=== PATIENT | male | born 1940 | race Caucasian/White ===

== ENCOUNTER 2018-05-24 00:35 | Inpatient (IN) ==
[2018-05-24] MEDS ORDERED: Gentamicin/NS 80 mg Premix 100 ML IV.SIG ONE (00:47)
[2018-05-24] MEDS ORDERED: fentaNYL Citrate Inj 100 MCG/2 ML Ampul IV.PUSH ONE (00:48)
--- NOTE | 2018-05-24 00:56 | ED ---
HPI General Chief Complaint: Trauma Stated Complaint: TA transfer Time Seen by Provider: 05/24/18 00:46 Source: patient Mode of arrival: EMS Limitations: no limitations History of Present Illness HPI narrative: The patient is a 78 year old male who presents to the [facility] emergency department with a history of acquiring a right knee open fracture, initially evaluated at [facility] and accepted in transfer by the trauma surgeon, Dr. Kidd to this hospital. The patient reports that prior to being evaluated at [facility] he was working in his shop with a saw. He reports that he had a piece of plywood on the sawhorse and the wood became dislodged and the soft fell to the ground. He then lost his balance and also fell possibly on the soft. The patient reports that he has right knee pain. He reports that he did hit his head, however he did not lose consciousness. He denies being on any blood thinners. He denies having any headache currently. He denies having any neck pain, numbness or tingling to his extremities, or weakness of his extremities. On review of systems otherwise , patient denies having any chest pain, new or worsening shortness of breath, abdominal pain, or other neurologic symptoms. Related Data Home Medications Medication Instructions Recorded Confirmed Unable to Obtain Home Meds 05/24/18 05/24/18 Allergies Allergy/AdvReac Type Severity Reaction Status Date / Time Sulfa (Sulfonamide Allergy Severe Hives Verified 05/24/18 00:46 Antibiotics) Review of Systems ROS: all other systems reviewed are negative PMFSH Medical History Medical History Hernia (Acute) Hypertension (Acute) Hypothyroidism (Acute) Throat cancer (Acute) Surgical History Surgical History H/O left knee surgery (Acute) Social History Social History Substance History: No History of Abuse Second Hand Smoke Exposure: No Smoking Status: Former smoker How Often Do You Have a Drink Containing Alcohol: Monthly or less Recent Travel in [facility] within the Last 8 Weeks: No Recent Out of Country Travel within the Last 8 Weeks: No Immunization History Tetanus Immunization: <5 Years Tetanus Immunization Year if Known: 2018 Exam Const General: cooperative, no acute distress and well developed Nutritional Appearance: well nourished Orientation: alert, awake and oriented x3 HENMT Head: normocephalic and other (The patient has an abrasion/superficial laceration noted to the left lateral eyebrow area. Bleeding is controlled. The patient has no increased facial bone motility on palpation. No other facial bone tenderness on palpation.) Nose: no nasal discharge and no epistaxis Mouth: moist mucous membranes Eyes Sclera: normal sclerae Pupils: PERRL Neck Neck: trachea midline and no JVD Resp Effort & Inspection: no use of accessory muscles Auscultation: clear to auscultation bilaterally Cardio Rate: regular rate Rhythm: regular rhythm Heart Sounds: no murmurs GI Inspection: non-distended Palpation: soft, no hepatosplenomegaly and nontender Back/Spine/Pelvis Back: no CVA tenderness Skin General: dry skin (warm) Neuro General: alert, awake, oriented x3 and other (Grossly non-focal.) Speech: other (The patient has a hoarse quality to his voice with a prior history of throat cancer status post radiation therapy.) Motor: no movement abnormalities noted Extrem General: no clubbing, no cyanosis, no edema and other (2+ pulses in all 4 extremities.) Right upper extremity: normal to inspection and full ROM Left upper extremity: normal to inspection and full ROM Right lower extremity: knee (The patient has a bandage in place that was gently removed. The patient is noted to have an anterior curvilinear laceration that is 15 cm in width, 3 cm gaping laceration along the anterior aspect of the right knee. Distal to that, the patient is also noted to have a 5 cm laceration. The bandage will be reapplied. The patient has decreased range of motion, significant pain with any attempts at flexion or extension. The patient has soft compartments noted on examination of the right leg. The patient has intact sensation over all digits. The patient has less than 3- second capillary refill.) Left lower extremity: normal to inspection and full ROM Psych Mood: congruent mood Affect: normal affect Judgment: judgment good Course Consultations Consultation #1: The patient's case including history, pertinent physical examination findings, and laboratory studies were discussed with Dr. Hoyt, the trauma surgeon. It was agreed that the patient would be admitted to the trauma service. Time: 00:47 Initial Documented Vital Signs Temperature 97.8 F 05/24/18 00:38 Pulse Rate 104 H 05/24/18 00:38 Respiratory Rate 20 05/24/18 00:38 Blood Pressure 137/76 05/24/18 00:38 Pulse Oximetry 92 L 05/24/18 00:38 Last Documented Vital Signs Temperature 97.8 F 05/24/18 00:38 Pulse Rate 104 H 05/24/18 00:38 Respiratory Rate 20 05/24/18 00:38 Blood Pressure 137/76 05/24/18 00:38 Pulse Oximetry 92 L 05/24/18 00:38 Medical Decision Making MDM Narrative Medical decision making narrative: During the course of the patient's emergency department visit, the patient's history, examination, and differential diagnosis were reviewed with the patient. The patient was placed on a monitoring coordinator with oximetry and frequent blood pressure monitoring. The patient had IV access obtained prior to arrival of the other facility. The patient was initially provided gentamicin 80 mg IV. The patient will have a bandage reapplied to the right knee, a knee immobilizer will be applied to the right knee. The patient's diagnostic studies from the other facility are reviewed and remarkable for a PT that is 13, INR 1.0, PTT 27, sodium 134, potassium 3.5, chloride 97, CO2 24, glucose 144, BUN 25, creatinine 0.70. The patient's white blood cell count was 9.2, hemoglobin 9.4, platelets 236 with neutrophils 80.3, lymphocytes 13.6. CT scan of the brain showed small focal posttraumatic extraosseous soft tissue swelling but no acute depressed skull fracture or posttraumatic acute intracranial hemorrhage, no focal intra-axial mass or definitive large territorial acute CVA. CT scan of the C-spine shows no gross central canal stenosis or gross acute displaced cervical vertebral body fracture. 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 The patient at that facility did receive morphine for pain control, an update to his tetanus, Ancef for wound prophylaxis, hydralazine for hypertension. A call was placed out to the trauma surgeon who did accept the patient for admission. A call was placed out to the orthopedic surgeon, Dr. Benito. I spoke to Thang, the PA working with Dr. Benito and he recommended that the patient have the bandage reapplied with a Betadine soaked bandage. He recommended that the knee immobilizer be placed. He agreed with the plan for the patient to receive gentamicin IV. He plans to pick the patient to the OR later today at approximately 7 AM. The patient's results were discussed with the patient, including the plan of care. I explained that further testing and/ or monitoring is indicated based on the patient's history, examination, and/ or laboratory findings. Therefore, I recommended admission for additional evaluation. The patient expressed understanding and was agreeable with this plan. The patient was admitted to the hospital in guarded condition and sent to a bed under the care of the trauma service. Medical Screen Exam Complete: Yes Emergency Medical Condition: Yes Discharge Plan Discharge Disposition Patient Disposition: ED Admit(ED Internal Use Only) Discharge Order Discharge Orders: ED Use Only Admit Order (Routine); Ordered 05/24/18 Ordered By: Fina Hernandez Discharge Details Diagnosis: Open fracture of bone of knee joint Physicians Team ED Provider: Fina Hernandez Primary Care Provider: Waqsa Reno Rxs /Orders / Referrals /Forms Prescriptions: No Action Unable to Obtain Home Meds RF: 0 Discharge Interventions Interventions: Vital Signs Last Done: 05/24/18 01:17 Status ED Status: With Doctor
[2018-05-24] MEDS ORDERED: Morphine Sulfate Inj 2 MG/ML Vial IV.PUSH PRN (06:56)
[2018-05-24] MEDS ORDERED: Sod Chloride 0.9% Inj 1,000 ML IV.CONT SCH (07:00)
[2018-05-24] MEDS ORDERED: Metoprolol Tartrate 25 MG Tablet PO SCH (07:52)
[2018-05-24] MEDS ORDERED: Chlorhexidine Gluconate 2% 1 Pack (2 Cloths) TOPICAL SCH (07:52)
[2018-05-24] MEDS ORDERED: Sodium Chlor 0.9% Inj 500 ML IV.SIG SCH (08:00)
[2018-05-24] MEDS ORDERED: ceFAZolin 1 GM Premix Inj 2 GM/100 ML PIGGYBACK IV.SIG ONE (08:29)
[2018-05-24] MEDS ORDERED: Morphine Inj 4 MG/ML Vial IV.PUSH PRN (10:09)
[2018-05-24] MEDS ORDERED: Post-op Orders (for Pharmacy) OTHER STA (10:09)
--- NOTE | 2018-05-24 10:20 | P.CONOP ---
[facility] Orthopedics Consult Note - [facility] Consult date: 05/24/18 Chief complaint: Open fracture right knee Narrative: Navneet is a 78-year-old male. He was at home working in his [employer] last night when he sustained an injury to his right leg. He had a saw on top of a plywood work table. He was moving the table in the plywood fell over. The soft fell and hit the ground causing the safety cover to break. He then fell directly onto the saw. He sustained a large laceration to his right leg. He initially presented to [facility]. X-rays and CT scan revealed a distal femur fracture. He has subsequent transferred to [place] for definitive care. His only complaint is his right leg. He denies dizziness, syncope, or loss of consciousness. Pain is severe with weightbearing. Pain is improved with rest. Review of Systems Patient denies fevers, chills, weight loss, headache, visual changes, hearing loss, chest pain, palpitations, shortness of breath, nausea, vomiting, no urinary changes, diarrhea, bowel changes, neck pain, back pain, skin rashes, weakness of extremities, easy bleeding, enlarged lymph nodes, numbness of extremities, anxiety, or depression. He complains of right leg pain Patient's social history, past medical history, and family history were reviewed on chart and with patient. [facility] - History History Provided By: Patient - Medical History Medical History: Medical History (Last Reviewed 05/24/18 @ 10:18 by Dustin Barajas MD) Hernia Hypertension Hypothyroidism Throat cancer - Surgical History Surgical History: Surgical History (Last Reviewed 05/24/18 @ 10:18 by Dustin Barajas MD) H/O left knee surgery - Family History Family History: Family History (Last Updated 05/24/18 @ 10:18 by Dustin Barajas MD) Other Family history non-contributory - Social History I have reviewed the patient's Social History: Yes - Tobacco History Second Hand Smoke Exposure: No Tobacco Use In Past 30 Days: No Smoking Status: Former smoker - Alcohol History How Often Do You Have a Drink Containing Alcohol: Monthly or less - Substance Use History Substance History: No History of Abuse - Travel History Recent Travel in the [place] Within the Last 8 Weeks: No Recent Travel Out of the Country Within the Last 8 Weeks: No - Immunization History Tetanus Immunization: <5 Years Tetanus Immunization Year if Known: 2018 Medications and Allergies Active Medications: Active Medications Hydrocodone Bitart/Acetaminophen ([place] 5/325) 1 tab PO Q4H PRN PRN Reason: Pain 1-5 Hydrocodone Bitart/Acetaminophen ([place] 7.5/325) 1 tab PO Q4H PRN PRN Reason: Acute Pain Al Hydroxide/Mg Hydroxide (Milk Of Rufino Liq) 30 ml PO BID [facility] Bacitracin (Baciguent Oint) 1 applicatio TOPICAL BID [facility] Calcium/Vitamin D (Oscal With D 250/125 Mg) 1 tab PO TID [facility] Chlorhexidine Gluconate (Chlorhexidine 2% Cloth) 3 pack TOPICAL DAILY@0400 [facility] Stop: 05/30/18 03:59 Last Admin: 05/24/18 08:20 Dose: 3 pack Chlorhexidine Gluconate (Chlorhexidine 2% Cloth) 3 pack TOPICAL DAILY@0400 PRN PRN Reason: Extra cloth needed Stop: 05/30/18 03:59 Chlorhexidine Gluconate (Chlorhexidine 2% Cloth) 3 pack TOPICAL PARCEL POST DELIVERY [facility] Stop: 05/24/18 23:59 Enalaprilat (Vasotec Inj) 1.25 mg IV.PUSH Q8H PRN PRN Reason: Blood pressure 180/95 Enoxaparin Sodium (Lovenox Inj) 30 mg SQ Q24H [facility] Famotidine (Pepcid) 20 mg PO BID [facility] Sodium Chloride (Ns Inj) 1,000 mls @ 100 mls/hr IV.CONT .Q10H [facility] Lactated Ringer's (Lr 1000 Ml Inj) 1,000 mls @ 30 mls/hr IV.SIG .Q24H [facility] Stop: 05/25/18 07:59 Last Admin: 05/24/18 07:45 Dose: 30 mls/hr Sodium Chloride (Ns Inj) 500 mls @ 30 mls/hr IV.SIG .[id number] [facility] Stop: 05/25/18 00:39 Cefazolin Sodium 2,000 mg/ (Sodium Chloride) 100 mls @ 200 mls/hr IV.SIG Q8H [facility] Stop: 05/26/18 03:29 Gentamicin Sulfate/Sodium Chloride (Gentamicin/Ns 80 Mg Premix) 100 mls @ 200 mls/hr IV.SIG Q8H [facility] Stop: 05/26/18 02:44 Lactated Ringer's (Lr 1000 Ml Inj) 1,000 mls @ 80 mls/hr IV.CONT .[id number] [facility] Lactulose (Lactulose Liq) 30 ml PO DAILY PRN PRN Reason: CONSTIPATION Metoprolol Tartrate (Lopressor) 25 mg PO PARCEL POST DELIVERY [facility] Stop: 05/24/18 23:59 Miscellaneous Information (Misc Post-Op Orders (For Pharmacy)) 0 each OTHER STAT STA Stop: 05/24/18 10:10 Morphine Sulfate (Morphine Inj) 3 mg IV.PUSH Q3H PRN PRN Reason: Break through pain Morphine Sulfate (Morphine Inj) 3 mg IV.PUSH Q3H PRN PRN Reason: BREAKTHROUGH PAIN Ondansetron HCl (Zofran Inj) 4 mg IV.PUSH Q6H PRN PRN Reason: NAUSEA OR VOMITING Ondansetron HCl (Zofran Odt) 4 mg PO Q6H PRN PRN Reason: NAUSEA OR VOMITING Povidone Iodine (Betadine 5% Antisepsis Kit) 1 applicatio EACH NARE PARCEL POST DELIVERY [facility] Stop: 05/24/18 23:59 Last Admin: 05/24/18 08:20 Dose: Not Given Senna/Docusate Sodium (Asia-Colace) 1 tab PO BID [facility] Sodium Chloride (Ns Flush) 2 ml IV.FLUSH UNSCH PRN PRN Reason: FLUSH AFTER USING IV ACCESS Sodium Chloride (Ns Flush) 2 ml IV.FLUSH BID [facility] Sodium Chloride (Ns Flush) 2 ml IV.FLUSH PRN PRN PRN Reason: FLUSH AFTER USING IV ACCESS Vitamin D (Vitamin D3) 5,000 unit PO DAILY [facility] Allergies Allergy/AdvReac Type Severity Reaction Status Date / Time Sulfa (Sulfonamide Allergy Severe Hives Verified 05/24/18 00:46 Antibiotics) Home Medications Medication Instructions Recorded Confirmed Type Unable to Obtain Home Meds 05/24/18 05/24/18 History Exam Vital signs: Vital Signs 05/24/18 00:38 05/24/18 01:17 05/24/18 03:28 Temperature 97.8 F Pulse Rate 104 H 97 H 97 H Respiratory Rate 20 20 17 Blood Pressure 137/76 133/75 154/91 H Pulse Oximetry 92 L 98 98 05/24/18 05:04 05/24/18 06:43 Temperature Pulse Rate 95 H 94 H Respiratory Rate 20 17 Blood Pressure 149/83 H 132/80 Pulse Oximetry 98 98 Intake & Output 05/23/18 05/24/18 05/24/18 18:59 06:59 18:59 Intake Total 100 / 100 500 / 500 Output Total 50 / 50 Balance 100 / 100 450 / 450 Weight 79.379 kg Intake: IV 100 / 100 Gentamicin/NS 80 mg Premix 100 100 / 100 ML @ 200 mls/hr IV.SIG ONCE ONE Rx#:[id number] Anesthesia Amount 500 / 500 Output: Estimated Blood Loss 50 / 50 Narrative: Navneet is a pleasant 78-year-old male. General: Awake and alert. No acute distress. Appears well-developed well- nourished Head: Normocephalic, he has a small contusion on his forehead, pupils are equal Neck: Soft, nontender, trachea midline Abdomen: Soft, nondistended Examination of right arm reveals no pain or deformity with shoulder, elbow, or wrist motion. Skin is intact. Radial pulse is palpable. Normal capillary refill in fingers. Sensation is intact in radial, ulnar, and median nerve distributions. Senior Contract Specialist strength is +5. No lymphadenopathy noted. Examination of left arm reveals no pain or deformity with shoulder, elbow, or wrist motion. Skin is intact. Radial pulse is palpable. Normal capillary refill in fingers. Sensation is intact in radial, ulnar, and median nerve distributions. Senior Contract Specialist strength is +5. No lymphadenopathy noted. Examination of left lower extremity reveals no pain or deformity with hip, knee , or ankle motion. Skin is intact. Sensation is intact in left foot. Dorsalis pedis pulse is palpable. Normal capillary refill and feet. Thigh and calf compartments are soft. No lymphadenopathy noted. +5 strength of ankle dorsiflexion and plantarflexion. Examination of right lower extremity reveals no pain or deformity with hip or ankle motion. He has a large open laceration over the medial aspect of his knee. The knee joint and femur are visible. He has severe pain with any knee motion. Sensation is intact in right foot. Dorsalis pedis pulse is palpable. Normal capillary refill and feet. Thigh and calf compartments are soft. No lymphadenopathy noted. +5 strength of ankle dorsiflexion and plantarflexion. Results - Labs Labs: Laboratory Results - last 24 hr 05/24/18 07:40 Blood Type O Positive Antibody Screen Negative - Diagnostic results Knee x-ray: report reviewed, image reviewed Knee CT: report reviewed, image reviewed Assessment and Plan - Assessment and Plan Navneet had a fall at home. He fell onto a saw blade. He had a large laceration to his right knee. X-rays and CT scan were [facility]. He has a fracture through the medial condyle of the right distal femur. Treatment options were discussed with patient. At this point I would recommend irrigation and debridement of right knee and femur with possible open reduction internal fixation. The risk and benefits of surgery were discussed in depth with patient. All questions were answered. The risk and benefits of surgery were discussed in depth with patient. The risk of surgery include bleeding, infection, injuries to arteries, nerves, or blood vessels, infection, wound complications, nonunion, malunion, painful hardware, and need for further surgery. I also discussed medical complications including blood clots, pneumonia, stroke, heart attack, and . Informed consent was obtained and all questions were answered. N.p.o.--plan on surgery this morning Calcium and vitamin D supplementation Physical therapy consult--nonweightbearing right leg Follow-up with Dr. Barajas in 2 weeks SCDs, Mathew Tillman A mid-level provider in my office (nurse practitioner or physician admissions assistant) may see this patient on follow-up visits and continue to implement the objectives of this plan including: Starting or adjusting medications, injections , cast application, orthotics, brace application, physical therapy, radiological studies (including x-ray, MRI, CT, ultrasound, bone scan), vascular studies, neurologic studies, specialist consultation, and proceeding with surgical management, as appropriate.
--- NOTE | 2018-05-24 10:24 | P.OP ---
- Preoperative Diagnosis (1) Fracture of right knee region (2) Open fracture of bone of knee joint Date of procedure: 05/24/18 Procedure: Irrigation and debridement of open right femur fracture, open reduction internal fixation right distal femur medial condyle fracture, primary repair of quadriceps tendon laceration Anesthesia: GETA Surgeon: Dustin Barajas MD Safety Administrator: ANGELIKA Yates PA-C The surgical procedure was assisted by my physician assistant distribution manager. My P.A. presence was necessary throughout this case for the manipulation and positioning of the surgical extremity. My P.A. was assisting me throughout the duration of this procedure. The skill set of a physician assistant distribution manager was medically necessary to complete this procedure. During the surgical case the surgical instrument mechanic was working at the back table and the physician assistant distribution manager was directly assisting me. Operation and Findings: Implants used: Synthes Plan of activity: Nonweightbearing, CKS at all times for 2 weeks then start passive range of motion of knee 0-45 degrees Details of procedure: Informed consent was obtained, operative site was marked. Patient was brought to the OR, placed on OR table, and given IV sedation with GETA. IV antibiotics were administered. The operative leg was prepped with alcohol, followed with Hibiclens, draped in usual sterile fashion. A timeout procedure was performed. Procedure began with irrigation and debridement of wound and fracture. The wound was thoroughly inspected. There was laceration of greater than 50% of the quadriceps tendon. There was a fracture through the medial epicondyle and medial condyle of the distal femur. An excisional debridement was performed. Skin subcutaneous tissue and fascia were sharply debrided with scalpel. Curettes and rongeurs were used to debride bone. After completion of excisional debridement the wound was thoroughly irrigated with pulsatile lavage. Next attention was turned to the medial condyle fracture. A Synthes plate was contoured to fit along the medial condyle of the distal femur. Patient had severe osteoarthritis with large osteophytes. The fracture was held in a reduced position. The plate was positioned along the medial aspect of the distal femur. K wires were used to hold provisional fixation. 3.5 screws were used to compress plate to bone. Multiple 3.5 locking screws were placed distally. All screws were predrilled and premeasured for appropriate length. The wound was now thoroughly irrigated. Next attention was turned to repair of the quadriceps tendon. The quadriceps tendon was reapproximated. Using #1 PDS suture the quadriceps tendon was completely repaired. Multiple sutures were used to repair tendon. The knee was placed to gentle range of motion and repair appeared to be stable. The remainder the wound was now closed with #1 PDS, 3-0 PDS, and 3-0 nylon. Sterile dressings were applied. Patient was placed into a knee immobilizer. Patient was awakened and transferred to recovery room in stable condition.
[2018-05-24] MEDS ORDERED: fentaNYL Citrate Inj 100 MCG/2 ML Ampul ONE ×2 (10:29→10:30)
[2018-05-24] MEDS ORDERED: *morphine SULFATE 4 MG/ML PERIprocedure ONLY ONE (10:33)
[2018-05-24] MEDS ORDERED: HYDROmorphone PF Inj 0.5 MG/0.5 ML Syringe ONE ×2 (10:47→11:13)
--- NOTE | 2018-05-24 10:48 | XR ---
EXAM DATE: 05/24/2018 10:45 AM EST AGE/SEX: 78 years / Male INDICATIONS: ORIF right knee. CLINICAL DATA: This is the patient's initial encounter. Patient reports that signs and symptoms have been present for 1 day and indicates a pain score of Nonresponsive. MEDICAL/SURGICAL HISTORY: None. None. COMPARISON: No prior exams available for comparison. FINDINGS: Hardware is noted within the right distal femur status post ORIF. Moderate to severe arthritic change s are noted involving the medial femoral tibial and patellofemoral joints. CONCLUSION: 1. Status post ORIF of right distal femur. 2. Moderate to severe arthritic changes involving the medial femoral tibial and patellofemoral joint s. Electronically signed by: Ronaldo Martinez MD Board Certified Radiologist 05/24/2018 10:47 AM EST
[2018-05-24] MEDS ORDERED: *Labetalol HCl Inj 100 MG/20 ML Vial PERIprocedural Use ONLY IV.PUSH ONE (10:50)
--- NOTE | 2018-05-24 12:26 | ECG ---
Date Performed: 05/24/2018 Time Performed: 07:48:46 PTAGE: 78 years EKG: Sinus rhythm MINIMAL VOLTAGE CRITERIA FOR LVH, CONSIDER NORMAL VARIANT NONSPECIFIC T-WAVE ABNORMALITY BORDERLINE ECG NO PREVIOUS TRACING DOCTOR: Odin Oates Interpretating Date/Time 05/24/2018 12:24:20
[2018-05-24] MEDS: Famotidine 20 MG Tablet PO SCH ×2 (12:34→20:03)
[2018-05-24] MEDS: Senna/Docusate Sodium 8.6/50 MG Tablet PO SCH ×2 (12:35→20:03)
[2018-05-24] MEDS: ceFAZolin 2 GM Premix Inj 2 GM/50 ML PIGGYBACK IV.SIG SCH (17:00)
[2018-05-24] MEDS: Calcium/Vitamin D 250/125 MG Tablet PO SCH ×2 (17:07→18:18)
[2018-05-24] MEDS: Gentamicin/NS 80 mg Premix 100 ML IV.SIG SCH (18:19)
[2018-05-24] MEDS: Carvedilol 12.5 MG Tablet PO SCH (20:55)
[2018-05-24] MEDS: amLODIPine 10 MG Tablet PO SCH (20:55)
[2018-05-25] MEDS: Gentamicin/NS 80 mg Premix 100 ML IV.SIG SCH ×3 (00:10→17:37)
[2018-05-25] MEDS: ceFAZolin 2 GM Premix Inj 2 GM/50 ML PIGGYBACK IV.SIG SCH ×3 (00:41→17:36)
[2018-05-25] MEDS ORDERED: Chlorhexidine Gluconate 2% 1 Pack (2 Cloths) TOPICAL PRN (04:00)
[2018-05-25] MEDS ORDERED: Chlorhexidine Gluconate 2% 1 Pack (2 Cloths) TOPICAL SCH (04:00)
[2018-05-25 05:42] LABS: Baso % (Auto) 0.3 % (0.0-2.0); Eos % (Auto) 0.1 % (0.0-4.0); Hematocrit 23.7 % (39.0-51.0); Hemoglobin 8.1 gm/dL (13.0-17.0); Lymph # (Auto) 1.1 th/mm3 (1.0-4.8); Lymph % (Auto) 10.8 % (9.0-44.0); Mean Corpuscular HGB Conc 34.3 % (32.0-36.0); Mean Corpuscular Hemoglobin 27.1 pg (27.0-34.0); Mean Corpuscular Volume 79.1 fL (80.0-100.0); Mean Platelet Volume 7.3 fL (7.0-11.0); Mono # (Auto) 1.1 th/mm3 (0.0-0.9); Mono % (Auto) 10.4 % (0.0-8.0); Neut # (Auto) 8.2 th/mm3 (1.8-7.7); Neut % (Auto) 78.4 % (16.0-70.0); Platelet Count 197 th/mm3 (150-450); Red Blood Count 2.99 mil/mm3 (4.50-5.90); Red Cell Distribution Width 18.4 % (11.6-17.2); White Blood Count 10.5 th/mm3 (4.0-11.0)
[2018-05-25 06:11] LABS: Anion Gap 4 meq/L (5-15); Blood Urea Nitrogen 11 mg/dL (7-18); Calcium 7.5 mg/dL (8.5-10.1); Chloride 104 meq/L (98-107); Glomerular Filtration Rate Greater Than 89 mL/min (>89); Glucose,Random 123 mg/dL (74-106); Potassium 3.8 meq/L (3.5-5.1); Sodium 138 meq/L (136-145)
--- NOTE | 2018-05-25 08:03 | P.PN ---
Subjective Interval history: Trauma PTD: 3 HD: 2 Patient sitting up in bed. No distress noted. "I am doing fine." Discussed the importance of a good bowel regimen while taking narcotic pain medications. Patient states he prefers MiraLAX to milk of magnesia. Patient states his pain is controlled on the pain regimen ordered. Physical Exam Vital signs: Vital Signs 05/24/18 10:25 05/24/18 10:30 05/24/18 10:45 Temperature 98.5 F Pulse Rate 80 80 87 Respiratory Rate 12 20 22 Blood Pressure 194/96 H 179/95 H 181/97 H Pulse Oximetry 95 96 95 05/24/18 10:52 05/24/18 11:00 05/24/18 11:15 Temperature Pulse Rate 74 71 72 Respiratory Rate 16 16 16 Blood Pressure 168/84 H 166/80 H 163/86 H Pulse Oximetry 93 L 97 95 05/24/18 11:30 05/24/18 11:45 05/24/18 12:00 Temperature Pulse Rate 77 73 73 Respiratory Rate 20 16 Blood Pressure 175/97 H 136/82 122/71 Pulse Oximetry 93 L 96 97 05/24/18 13:00 05/24/18 14:00 05/24/18 15:00 Temperature Pulse Rate 79 79 98 H Respiratory Rate 20 20 20 Blood Pressure 118/67 144/73 H 169/84 H Pulse Oximetry 98 98 98 05/24/18 16:00 05/24/18 17:00 05/24/18 17:59 Temperature 98.5 F 98.2 F Pulse Rate 94 H 86 98 H Respiratory Rate 18 15 18 Blood Pressure 177/80 H 157/78 H 140/78 Pulse Oximetry 94 L 96 94 L 05/24/18 19:35 05/25/18 00:00 05/25/18 04:15 Temperature 97.8 F 98.6 F 99.1 F Pulse Rate 95 H 93 H 93 H Respiratory Rate 18 18 18 Blood Pressure 165/78 H 156/77 H 162/77 H Pulse Oximetry 94 L 98 95 Intake & Output 05/24/18 05/25/18 05/25/18 18:59 06:59 18:59 Intake Total 2010 1509 / 1509 Output Total 50 / 50 1280 / 1280 Balance 1960 / 1960 229 / 229 Weight 79.4 kg Intake: IV 1511 / 1511 789 / 789 LR 1000 mL Inj 1,000 ML @ 80 461 / 461 539 / 539 mls/hr IV.CONT .[id number] [facility] Rx# :[id number] Gentamicin/NS 80 mg Premix 100 200 / 200 ML @ 200 mls/hr IV.SIG Q8H [facility] Rx#:[id number] LR 1000 mL Inj 1,000 ML @ 30 1000 / 1000 mls/hr IV.SIG .Q24H [facility] Rx#: [id number] Ancef 2 GM Premix Inj 2 gm In 50 / 50 50 / 50 50 ml @ 100 mls/hr IV.SIG Q8H [facility] Rx#:[id number] Oral 720 / 720 Anesthesia Amount 500 / 500 Output: Urine 1280 / 1280 Estimated Blood Loss 50 / 50 Other: Date of Last Bowel Movement 05/23/18 # Bowel Movements 0 Weight On Admission 79.379 kg Narrative: GENERAL: This is a 78-year-old male sitting up in bed. No distress noted. SKIN: Warm and dry. HEAD: Atraumatic. Normocephalic. EYES: PERRLA. Small laceration to left outer eyelid. ENT: No nasal bleeding or discharge. Mucous membranes pink and moist. NECK: Trachea midline. No JVD. CARDIOVASCULAR: Regular rate and rhythm. RESPIRATORY: No accessory muscle use. Lungs are clear to auscultation. Breath sounds equal bilaterally. No distress or dyspnea. GASTROINTESTINAL: BS + x 4 quads. Abdomen soft, non-tender, nondistended. MUSCULOSKELETAL: Extremities without cyanosis, or edema. Right lower extremity wrapped in Lane bandage. CKS in place. + peripheral pulses x 4 extremities. Warm with good capillary refill and sensation. MAEW. NEUROLOGICAL: Awake and alert. Normal speech and pattern. Results - Labs CBC & Chem 7: 05/26/18 03:45 05/26/18 03:45 Laboratory Results - last 24 hr 05/24/18 05/25/18 05/25/18 07:40 04:24 04:24 WBC 10.5 RBC 2.99 L Hgb 8.1 L Hct 23.7 L MCV 79.1 L MCH 27.1 MCHC 34.3 RDW 18.4 H Plt Count 197 MPV 7.3 Neut % (Auto) 78.4 H Lymph % (Auto) 10.8 [place] % (Auto) 10.4 H Eos % (Auto) 0.1 Baso % (Auto) 0.3 Neut # (Auto) 8.2 H Lymph # (Auto) 1.1 [place] # (Auto) 1.1 H Eos # (Auto) 0.0 Baso # (Auto) 0.0 WBC Differential . Differential Comment Auto diff final Sodium 138 Potassium 3.8 Chloride 104 Carbon Dioxide 30.0 Anion Gap 4 L BUN 11 Creatinine 0.63 Estimated GFR Greater than 89 Random Glucose 123 H Calcium 7.5 L Blood Type O Positive Antibody Screen Negative - Imaging Impressions Knee X-Ray 05/24/18 00:00 CONCLUSION: 1. Status post ORIF of right distal femur. 2. 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 Assessment and Plan - Assessment (1) Open fracture of bone of knee joint Status: Acute (2) Fracture of right knee region Status: Acute (3) Open fracture Code(s): T14.8XXA - Other injury of unspecified body region, initial encounter Status: Acute - Plan [place]: This is a 78-year old male who sustained an injury while working in his wood shop. He was working with a saw, and the soft fell to the ground. Then the patient lost his balance and somehow fell on top of the soft injuring his right knee. Additionally, he hit his head but did not lose consciousness. Patient was a trauma transfer from [facility]. INJURIES: RIGHT knee lacerations RIGHT OPEN knee fx (medial femoral epicondyle with nondisplaced intra-articular component extending to the intercondylar notch) PMHx: HTN. Hypothyroidism. Throat cancer. Previous left knee surgery Procedures: 05/24: ORIF and I&D RIGHT distal femur medial condyle fracture. Primary repair of quadriceps tendon laceration Consults: Orthopedics. [facility] nurse liaison. Case management. Diet: Regular diet. Tolerating po diet. Encourage good po intake with each meal. Pulmonary: Encourage good pulmonary toileting. IS at bedside and pt encouraged to use. Rationale for use explained to patient, and verbalized understanding. PAIN Management: [place] 5 - 7.5 mg q4h. Morphine 3 mg q 3h. Activity: OOB. PT and OT ordered. (NWB RLE - CKS) GI prophylaxis: Pepcid 20 mg po BID Bowel regimen: [place]-Colace. Miralax. Lactulose PRN. LBM: 0 DVT prophylaxis: Mechanical VTE with SCDs. Chemical management with Lovenox 30 mg BID SQ. DC Planning: Case management consulted for assistance with final discharge disposition. PT is recommending rehab. Consult placed to [place] nurse liaison to evaluate for admission. Emotional support provided to patient at bedside and plan of care discussed. Discussed with RN at bedside. Discussed pt condition and plan of care with collaborating trauma surgeon. Patient is hemodynamically stable and being managed on the med/surg floor. The trauma team will round each day, and evaluate plan of care on a daily basis. RIGHT knee lacerations RIGHT OPEN knee fx (medial femoral epicondyle with nondisplaced intra-articular component extending to the intercondylar notch) Orthopedics consulted and assisting in management care 05/24: ORIF and I&D RIGHT distal femur medial condyle fracture. Primary repair of quadriceps tendon laceration Supportive care Neuro checks every 4 hours Pain management Antibiotics per orthopedics Encourage out of bed PT and OT ordered NWB RLE -CKS in place Bowel regimen Lovenox for DVT prophylaxis HTN Hypothyroidism History of throat cancer Vital signs every 4 hours and as needed Resume home medications Coreg 12.5 QD. Norvasc 10 mg QD - Attending Attestation The exam, history, and the medical decision-making described in the above note were completed with the assistance of the mid-level provider. I reviewed and agree with the findings presented. I attest that I had a [id number] encounter with the patient on the same day, and personally performed and documented my assessment and findings in the medical record. no acute events overnight vitals stable s/p repair of knee injury continue to work with PT Dc plan to Rehab, d/w patient at bedside
[2018-05-25] MEDS: Senna/Docusate Sodium 8.6/50 MG Tablet PO SCH ×2 (08:36→20:44)
[2018-05-25] MEDS: amLODIPine 10 MG Tablet PO SCH (08:36)
[2018-05-25] MEDS: Carvedilol 12.5 MG Tablet PO SCH (08:36)
[2018-05-25] MEDS: Calcium/Vitamin D 250/125 MG Tablet PO SCH ×3 (08:36→17:37)
[2018-05-25] MEDS: Famotidine 20 MG Tablet PO SCH ×2 (08:36→20:44)
[2018-05-25] MEDS: Enoxaparin Inj 30 MG/0.3 ML Syringe SQ SCH (08:43)
[2018-05-25] MEDS: Polyethylene Glycol 3350 17 GM Packet PO SCH (12:10)
[2018-05-26] MEDS: ceFAZolin 2 GM Premix Inj 2 GM/50 ML PIGGYBACK IV.SIG SCH ×2 (00:19→09:32)
[2018-05-26] MEDS: Gentamicin/NS 80 mg Premix 100 ML IV.SIG SCH ×2 (00:51→11:01)
[2018-05-26 04:43] LABS: Baso # (Auto) 0.1 th/mm3 (0.0-0.2); Baso % (Auto) 0.9 % (0.0-2.0); Eos % (Auto) 0.4 % (0.0-4.0); Hematocrit 21.7 % (39.0-51.0); Hemoglobin 7.4 gm/dL (13.0-17.0); Lymph # (Auto) 1.2 th/mm3 (1.0-4.8); Lymph % (Auto) 14.9 % (9.0-44.0); Mean Corpuscular Hemoglobin 27.3 pg (27.0-34.0); Mean Corpuscular Volume 80.2 fL (80.0-100.0); Mean Platelet Volume 6.9 fL (7.0-11.0); Mono % (Auto) 12.3 % (0.0-8.0); Neut # (Auto) 5.8 th/mm3 (1.8-7.7); Neut % (Auto) 71.5 % (16.0-70.0); Platelet Count 177 th/mm3 (150-450); Red Cell Distribution Width 18.7 % (11.6-17.2); White Blood Count 8.1 th/mm3 (4.0-11.0)
[2018-05-26 05:09] LABS: Anion Gap 4 meq/L (5-15); Blood Urea Nitrogen 8 mg/dL (7-18); Calcium 7.1 mg/dL (8.5-10.1); Carbon Dioxide 30.9 meq/L (21.0-32.0); Chloride 100 meq/L (98-107); Glomerular Filtration Rate Greater Than 89 mL/min (>89); Glucose,Random 113 mg/dL (74-106); Potassium 3.2 meq/L (3.5-5.1); Sodium 135 meq/L (136-145)
[2018-05-26 05:16] LABS: Albumin 2.7 g/dL (3.4-5.0); Calcium-Albumin Corrected 8.1 mg/dL (8.5-10.1)
--- NOTE | 2018-05-26 06:44 | P.PNOP ---
Subjective Interval history: POD 2 s/p ORIF right open medial condyle femur fx doing well. states no pain. controlled. reports sat in chair yesterday Physical Exam Vital signs: Vital Signs 05/25/18 07:58 05/25/18 12:00 05/25/18 16:00 Temperature 98.5 F 98 F 97.4 F L Pulse Rate 92 H 79 Respiratory Rate 18 16 18 Blood Pressure 154/74 H 129/64 151/69 H Pulse Oximetry 96 95 93 L 05/25/18 19:35 05/25/18 23:45 05/26/18 03:50 Temperature 98.1 F 98.9 F 98.5 F Pulse Rate 92 H 97 H 95 H Respiratory Rate 18 18 17 Blood Pressure 146/67 H 160/74 H 147/71 H Pulse Oximetry 95 96 95 Intake & Output 05/25/18 05/25/18 05/26/18 06:59 18:59 06:59 Intake Total 1509 / 1509 1260 / 1260 750 / 750 Output Total 1280 / 1280 1425 / 1425 1500 / 1500 Balance 229 / 229 -165 / -165 -750 / -750 Weight 79.4 kg 79.4 kg Intake: IV 789 / 789 300 / 300 150 / 150 LR 1000 mL Inj 1,000 ML @ 80 539 / 539 mls/hr IV.CONT .[id number] [facility] Rx# :[id number] Gentamicin/NS 80 mg Premix 100 200 / 200 200 / 200 100 / 100 ML @ 200 mls/hr IV.SIG Q8H [facility] Rx#:[id number] Ancef 2 GM Premix Inj 2 gm In 50 / 50 100 / 100 50 / 50 50 ml @ 100 mls/hr IV.SIG Q8H [facility] Rx#:[id number] Oral 720 / 720 960 / 960 600 / 600 Output: Urine 1280 / 1280 1425 / 1425 1500 / 1500 Other: Date of Last Bowel Movement 05/23/18 05/23/18 05/23/18 # Bowel Movements 0 0 Weight On Admission 79.379 kg Narrative: RLE: dressing removed and wounds visualized. clean and dry. healing well. minimal drainage. nvi Results - Labs CBC & Chem 7: 05/26/18 03:45 05/26/18 03:45 Laboratory Results - last 24 hr 05/26/18 05/26/18 03:45 03:45 WBC 8.1 RBC 2.70 L Hgb 7.4 L Hct 21.7 L MCV 80.2 MCH 27.3 MCHC 34.0 RDW 18.7 H Plt Count 177 MPV 6.9 L Neut % (Auto) 71.5 H Lymph % (Auto) 14.9 [place] % (Auto) 12.3 H Eos % (Auto) 0.4 Baso % (Auto) 0.9 Neut # (Auto) 5.8 Lymph # (Auto) 1.2 [place] # (Auto) 1.0 H Eos # (Auto) 0.0 Baso # (Auto) 0.1 WBC Differential . Differential Comment Auto diff final Sodium 135 L Potassium 3.2 L Chloride 100 Carbon Dioxide 30.9 Anion Gap 4 L BUN 8 Creatinine 0.64 Estimated GFR Greater than 89 Random Glucose 113 H Calcium 7.1 L* Calcium Adj for Albumin 8.1 L Albumin 2.7 L Assessment and Plan - Assessment and Plan 1) Right Medial Femoral condyle Fx s/p ORIF and wound closure - POD 2 -NWB -daily dressing changes -knee brace at all times for 2 weeks -begin PROM in 2 weeks 0-45deg -no quad sets or leg lifts -CM for DC planning -DVT prophylaxis -f/uu with Jigna or RUPALI in 2 weeks
[2018-05-26] MEDS ORDERED: Potassium Chloride 25 MEQ Effervescent Tablet PO ONE (07:45)
[2018-05-26] MEDS ORDERED: Sodium Chlor 0.9% Inj 250 ML IV.SIG SCH ×2 (08:00)
--- NOTE | 2018-05-26 08:41 | P.PN ---
Subjective Interval history: Trauma PTD: 4. HD: 3 Patient sitting up in bed. No distress noted. "I have not gotten my blood yet." "I am not having any pain in my leg -I know that." Patient tells us that he had throat cancer in 1990. 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 Physical Exam Vital signs: Vital Signs 05/25/18 12:00 05/25/18 16:00 05/25/18 19:35 Temperature 98 F 97.4 F L 98.1 F Pulse Rate 79 92 H Respiratory Rate 16 18 Blood Pressure 129/64 151/69 H 146/67 H Pulse Oximetry 95 93 L 95 05/25/18 23:45 05/26/18 03:50 Temperature 98.9 F 98.5 F Pulse Rate 97 H 95 H Respiratory Rate 18 17 Blood Pressure 160/74 H 147/71 H Pulse Oximetry 96 95 Intake & Output 05/25/18 05/26/18 05/26/18 18:59 06:59 18:59 Intake Total 1260 / 1260 750 / 750 Output Total 1425 / 1425 1500 / 1500 Balance -165 / -165 -750 / -750 Weight 79.4 kg Intake: IV 300 / 300 150 / 150 Gentamicin/NS 80 mg Premix 100 200 / 200 100 / 100 ML @ 200 mls/hr IV.SIG Q8H [facility] Rx#:[id number] Ancef 2 GM Premix Inj 2 gm In 100 / 100 50 / 50 50 ml @ 100 mls/hr IV.SIG Q8H [facility] Rx#:[id number] Oral 960 / 960 600 / 600 Output: Urine 1425 / 1425 1500 / 1500 Other: Date of Last Bowel Movement 05/23/18 05/23/18 # Bowel Movements 0 Narrative: GENERAL: This is a 78-year-old male sitting up in bed. No distress noted. SKIN: Warm and dry. HEAD: Atraumatic. Normocephalic. EYES: PERRLA. Small laceration to left outer eyelid. ENT: No nasal bleeding or discharge. Mucous membranes pink and moist. NECK: Trachea midline. No JVD. CARDIOVASCULAR: Regular rate and rhythm. RESPIRATORY: No accessory muscle use. Lungs are clear to auscultation. Breath sounds equal bilaterally. No distress or dyspnea. GASTROINTESTINAL: BS + x 4 quads. Abdomen soft, non-tender, nondistended. MUSCULOSKELETAL: Extremities without cyanosis, or edema. Right lower extremity wrapped in Lane bandage. CKS in place. + peripheral pulses x 4 extremities. Warm with good capillary refill and sensation. MAEW. NEUROLOGICAL: Awake and alert. Normal speech and pattern. Results - Labs CBC & Chem 7: 05/26/18 03:45 05/26/18 03:45 Laboratory Results - last 24 hr 05/26/18 05/26/18 05/26/18 03:45 03:45 03:45 WBC 8.1 RBC 2.70 L Hgb 7.4 L Hct 21.7 L MCV 80.2 MCH 27.3 MCHC 34.0 RDW 18.7 H Plt Count 177 MPV 6.9 L Neut % (Auto) 71.5 H Lymph % (Auto) 14.9 [place] % (Auto) 12.3 H Eos % (Auto) 0.4 Baso % (Auto) 0.9 Neut # (Auto) 5.8 Lymph # (Auto) 1.2 [place] # (Auto) 1.0 H Eos # (Auto) 0.0 Baso # (Auto) 0.1 WBC Differential . Differential Comment Auto diff final Sodium 135 L Potassium 3.2 L Chloride 100 Carbon Dioxide 30.9 Anion Gap 4 L BUN 8 Creatinine 0.64 Estimated GFR Greater than 89 Random Glucose 113 H Calcium 7.1 L* Calcium Adj for Albumin 8.1 L Magnesium 2.2 Albumin 2.7 L MTS Gel Crossmatch 05/26/18 07:44 WBC RBC Hgb Hct MCV MCH MCHC RDW Plt Count MPV Neut % (Auto) Lymph % (Auto) [place] % (Auto) Eos % (Auto) Baso % (Auto) Neut # (Auto) Lymph # (Auto) [place] # (Auto) Eos # (Auto) Baso # (Auto) WBC Differential Differential Comment Sodium Potassium Chloride Carbon Dioxide Anion Gap BUN Creatinine Estimated GFR Random Glucose Calcium Calcium Adj for Albumin Magnesium Albumin MTS Gel Crossmatch See Detail Assessment and Plan - Assessment (1) Open fracture of bone of knee joint Status: Acute (2) Fracture of right knee region Status: Acute (3) Open fracture Code(s): T14.8XXA - Other injury of unspecified body region, initial encounter Status: Acute - Plan [place]: This is a 78-year old male who sustained an injury while working in his wood shop. He was working with a saw, and the soft fell to the ground. Then the patient lost his balance and somehow fell on top of the soft injuring his right knee. Additionally, he hit his head but did not lose consciousness. Patient was a trauma transfer from [facility]. INJURIES: RIGHT knee lacerations RIGHT OPEN knee fx (medial femoral epicondyle with nondisplaced intra-articular component extending to the intercondylar notch) PMHx: HTN. Hypothyroidism. Throat cancer. Previous left knee surgery Procedures: 05/24: ORIF and I&D RIGHT distal femur medial condyle fracture. Primary repair of quadriceps tendon laceration Consults: Orthopedics. [facility] nurse liaison. Case management. Diet: Regular diet. Tolerating po diet. Encourage good po intake with each meal. Pulmonary: Encourage good pulmonary toileting. IS at bedside and pt encouraged to use. Rationale for use explained to patient, and verbalized understanding. H&H = 7.4 / . We will transfuse 1 unit PRBC today due to to patient's age and extensive surgery completed. Follow-up labs in the morning K = 3.2. Magnesium level = 2.2. Potassium Eff 50 mEq x 1 dose today. PAIN Management: [place] 5 - 7.5 mg q4h. Morphine 3 mg q 3h for breakthrough pain. Activity: OOB. PT and OT ordered. (NWB RLE - CKS) GI prophylaxis: Pepcid 20 mg po BID Bowel regimen: [place]-Colace. Miralax. Lactulose PRN. LBM: 0. Intensified with bisacodyl p.o./ID x1 dose today. DVT prophylaxis: Mechanical VTE with SCDs. Chemical management with Lovenox 30 mg BID SQ. DC Planning: Case management consulted for assistance with final discharge disposition. PT is recommending rehab. Consult placed to [place] nurse liaison to evaluate for admission. Plan for transition to rehab tomorrow if authorization obtained and bed available. Emotional support provided to patient at bedside and plan of care discussed. Discussed with RN at bedside. Discussed pt condition and plan of care with collaborating trauma surgeon. Patient is hemodynamically stable and being managed on the med/surg floor. The trauma team will round each day, and evaluate plan of care on a daily basis. RIGHT knee lacerations RIGHT OPEN knee fx (medial femoral epicondyle with nondisplaced intra-articular component extending to the intercondylar notch) Orthopedics consulted and assisting in management care 05/24: ORIF and I&D RIGHT distal femur medial condyle fracture. Primary repair of quadriceps tendon laceration Supportive care Neuro checks every 4 hours Pain management Antibiotics per orthopedics -complete today Encourage out of bed PT and OT ordered NWB RLE -CKS in place Bowel regimen Lovenox for DVT prophylaxis Posttraumatic blood loss anemia in trauma H&H = 7.09/26 Will transfuse with 1 unit PRBC today due to patient's age and extensive surgery completed No active signs and symptoms of bleeding Monitor closely Follow-up labs in the a.m. HTN Hypothyroidism History of throat cancer Vital signs every 4 hours and as needed Resume home medications Coreg 12.5 QD. Norvasc 10 mg QD Hypokalemia K = 3.2 Magnesium = 2.2 Potassium Eff 50 MEQ x1 dose today Follow-up labs in the morning
[2018-05-26] MEDS: Polyethylene Glycol 3350 17 GM Packet PO SCH (09:33)
[2018-05-26] MEDS: Enoxaparin Inj 30 MG/0.3 ML Syringe SQ SCH (09:33)
[2018-05-26] MEDS: amLODIPine 10 MG Tablet PO SCH (09:33)
[2018-05-26] MEDS: Senna/Docusate Sodium 8.6/50 MG Tablet PO SCH ×2 (09:33→22:06)
[2018-05-26] MEDS: Calcium/Vitamin D 250/125 MG Tablet PO SCH ×3 (09:34→18:17)
[2018-05-26] MEDS: Carvedilol 12.5 MG Tablet PO SCH (09:34)
[2018-05-26] MEDS: Famotidine 20 MG Tablet PO SCH ×2 (09:34→22:06)
[2018-05-26] MEDS: Bisacodyl 10 MG Supp RECTAL ONE ×2 (09:35→09:55)
[2018-05-27 05:13] LABS: Baso % (Auto) 0.6 % (0.0-2.0); Eos % (Auto) 0.6 % (0.0-4.0); Hematocrit 25.9 % (39.0-51.0); Hemoglobin 8.8 gm/dL (13.0-17.0); Lymph # (Auto) 1.2 th/mm3 (1.0-4.8); Mean Corpuscular Hemoglobin 27.1 pg (27.0-34.0); Mean Corpuscular Volume 79.7 fL (80.0-100.0); Mean Platelet Volume 6.9 fL (7.0-11.0); Mono % (Auto) 12.7 % (0.0-8.0); Neut # (Auto) 5.6 th/mm3 (1.8-7.7); Neut % (Auto) 71.1 % (16.0-70.0); Platelet Count 196 th/mm3 (150-450); Red Blood Count 3.25 mil/mm3 (4.50-5.90); Red Cell Distribution Width 17.4 % (11.6-17.2); White Blood Count 7.8 th/mm3 (4.0-11.0)
[2018-05-27 05:38] LABS: Anion Gap 5 meq/L (5-15); Blood Urea Nitrogen 11 mg/dL (7-18); Calcium 7.7 mg/dL (8.5-10.1); Carbon Dioxide 30.3 meq/L (21.0-32.0); Chloride 101 meq/L (98-107); Glomerular Filtration Rate Greater Than 89 mL/min (>89); Glucose,Random 101 mg/dL (74-106); Potassium 3.5 meq/L (3.5-5.1); Sodium 136 meq/L (136-145)
--- NOTE | 2018-05-27 06:40 | P.PNOP ---
Subjective Interval history: POd 3 s/p ORIF right distal femur doing well. pain controlled with no issues. up with walker but not going very far Physical Exam Vital signs: Vital Signs 05/26/18 08:00 05/26/18 12:00 05/26/18 13:15 Temperature 98.9 F 98.3 F 98.3 F Pulse Rate 89 78 78 Respiratory Rate 24 20 20 Blood Pressure 152/72 H 96/54 L 96/54 L Pulse Oximetry 98 98 98 05/26/18 16:00 05/26/18 19:55 05/27/18 00:00 Temperature 98.5 F 97.9 F 97.6 F Pulse Rate 83 86 89 Respiratory Rate 18 18 18 Blood Pressure 121/59 L 132/63 135/67 Pulse Oximetry 99 93 L 93 L 05/27/18 04:13 Temperature 98.4 F Pulse Rate 80 Respiratory Rate 18 Blood Pressure 147/71 H Pulse Oximetry 93 L Intake & Output 05/26/18 05/26/18 05/27/18 06:59 18:59 06:59 Intake Total 750 / 750 870 / 870 120 / 120 Output Total 1500 / 1500 1050 / 1050 900 / 900 Balance -750 / -750 -180 / -180 -780 / -780 Weight 79.4 kg 78.4 kg Intake: IV 150 / 150 150 / 150 Gentamicin/NS 80 mg Premix 100 100 / 100 100 / 100 ML @ 200 mls/hr IV.SIG Q8H [facility] Rx#:[id number] Ancef 2 GM Premix Inj 2 gm In 50 / 50 50 / 50 50 ml @ 100 mls/hr IV.SIG Q8H [facility] Rx#:[id number] Oral 600 / 600 720 / 720 120 / 120 Intake (Blood Product) Amt 0 / 0 Rbc As-3 Leukoreduced Unit 0 / 0 [id number] Output: Urine 1500 / 1500 1050 / 1050 900 / 900 Other: # Voids 2 Date of Last Bowel Movement 05/23/18 05/26/18 # Bowel Movements 0 0 Narrative: RLE: dressinsg clean and dry. intact. nvi. +CKS Results - Labs CBC & Chem 7: 05/27/18 04:09 05/27/18 04:09 Laboratory Results - last 24 hr 05/26/18 05/26/18 05/27/18 03:45 07:44 04:09 WBC 7.8 RBC 3.25 L Hgb 8.8 L Hct 25.9 L MCV 79.7 L MCH 27.1 MCHC 34.0 RDW 17.4 H Plt Count 196 MPV 6.9 L Neut % (Auto) 71.1 H Lymph % (Auto) 15.0 [place] % (Auto) 12.7 H Eos % (Auto) 0.6 Baso % (Auto) 0.6 Neut # (Auto) 5.6 Lymph # (Auto) 1.2 [place] # (Auto) 1.0 H Eos # (Auto) 0.0 Baso # (Auto) 0.0 WBC Differential . Differential Comment Auto diff final Sodium Potassium Chloride Carbon Dioxide Anion Gap BUN Creatinine Estimated GFR Random Glucose Calcium Magnesium 2.2 MTS Gel Crossmatch See Detail 05/27/18 04:09 WBC RBC Hgb Hct MCV MCH MCHC RDW Plt Count MPV Neut % (Auto) Lymph % (Auto) [place] % (Auto) Eos % (Auto) Baso % (Auto) Neut # (Auto) Lymph # (Auto) [place] # (Auto) Eos # (Auto) Baso # (Auto) WBC Differential Differential Comment Sodium 136 Potassium 3.5 Chloride 101 Carbon Dioxide 30.3 Anion Gap 5 BUN 11 Creatinine 0.68 Estimated GFR Greater than 89 Random Glucose 101 Calcium 7.7 L Magnesium MTS Gel Crossmatch Assessment and Plan - Assessment and Plan 1) Right Medial Femoral condyle Fx s/p ORIF and wound closure - POD 3 -NWB -daily dressing changes -knee brace at all times for 2 weeks -begin PROM in 2 weeks 0-45deg -no quad sets or leg lifts -CM for DC planning -- SNF vs home with [facility]. will likely require SNF -DVT prophylaxis -f/u with Jigna or RUPALI in 2 weeks [facility] Prescription Drug Monitoring Database has been queried and verified prior to prescribing the controlled substance. Acute pain exception. This patient has normal, predicted, physiological, and time limited response to an adverse mechanical stimulus associated with surgery, trauma, or acute illness as described in my notes. There is a lack of alternative treatment options other than to include the prescribed narcotic treatment for this condition.
[2018-05-27] MEDS: Carvedilol 12.5 MG Tablet PO SCH (08:34)
[2018-05-27] MEDS: Famotidine 20 MG Tablet PO SCH ×2 (08:34→20:41)
[2018-05-27] MEDS: Enoxaparin Inj 30 MG/0.3 ML Syringe SQ SCH (08:35)
[2018-05-27] MEDS: Senna/Docusate Sodium 8.6/50 MG Tablet PO SCH ×2 (08:35→20:41)
[2018-05-27] MEDS: amLODIPine 10 MG Tablet PO SCH (08:35)
[2018-05-27] MEDS: Polyethylene Glycol 3350 17 GM Packet PO SCH (08:35)
[2018-05-27] MEDS: Calcium/Vitamin D 250/125 MG Tablet PO SCH ×3 (08:35→18:05)
--- NOTE | 2018-05-27 11:15 | P.DS ---
Date of admission: 05/24/18 01:00 Primary care physician: Waqas Reno Brief History from admission: S/P Fall DS: Diagnosis - Discharge Diagnosis (1) Open fracture of bone of knee joint Status: Acute (2) Fracture of right knee region Status: Acute DS: Medications - Discharge Medications Prescriptions: hydrocodone-acetaminophen [[place]] 1 tab PO Q4H #40 tab rivaroxaban [Xarelto] 10 mg PO DAILY #14 tab DS: Summary Hospital Course: [facility] [place]: Dropped an electric saw and then lost his balance, falling on the blade. No LOC. Trauma transfer. INJURIES: Open RIGHT knee fx PMHx: HTN. Hypothyroidism. Throat cancer. Previous left knee surgery. Open RIGHT knee fx Orthopedics consulted, F/U outpatient 05/24: ORIF and I&D RIGHT distal femur medial condyle fracture. Primary repair of quadriceps tendon laceration Antibiotics complete Hgb stable 8.8 today Pain control Bowel regimen OOB- PT and OT ordered NWB RLE -maintain CKS Lovenox in house, DC on Xarelto per Ortho F/U with PCP in 1 week. Continue home meds Plan of care discussed with patient and RN at bedside. Collaborating Trauma surgeon agrees with plan. Case management consulted to assist with discharge planning. Patient is cleared from trauma surgery standpoint to safely discharge to SNF. - Time Spent with Patient Total time spent providing and/or coordinating discharge services: Greater than 30 minutes - Quality: VTE Deep Vein Thrombosis/Pulmonary Embolism Present on Admission: No Exam Vital signs: Vital Signs 05/26/18 12:00 05/26/18 13:15 05/26/18 16:00 Temperature 98.3 F 98.3 F 98.5 F Pulse Rate 78 78 83 Respiratory Rate 18 Blood Pressure 96/54 L 96/54 L 121/59 L Pulse Oximetry 98 98 99 05/26/18 19:55 05/27/18 00:00 05/27/18 04:13 Temperature 97.9 F 97.6 F 98.4 F Pulse Rate 86 89 80 Respiratory Rate 18 18 18 Blood Pressure 132/63 135/67 147/71 H Pulse Oximetry 93 L 93 L 93 L 05/27/18 08:00 Temperature 97.4 F L Pulse Rate 89 Respiratory Rate 21 Blood Pressure 179/83 H Pulse Oximetry 93 L Intake & Output 05/26/18 05/27/18 05/27/18 18:59 06:59 18:59 Intake Total 870 / 870 120 / 120 250 / 250 Output Total 1050 / 1050 900 / 900 200 / 200 Balance -180 / -180 -780 / -780 50 / 50 Weight 78.4 kg Intake: IV 150 / 150 250 / 250 Gentamicin/NS 80 mg Premix 100 100 / 100 ML @ 200 mls/hr IV.SIG Q8H PAIGE Rx#:[id number] NS Inj 250 ML @ 15 mls/hr IV. 250 / 250 SIG ONCE PAIGE Rx#:[id number] Ancef 2 GM Premix Inj 2 gm In 50 / 50 50 ml @ 100 mls/hr IV.SIG Q8H PAIGE Rx#:[id number] Oral 720 / 720 120 / 120 Intake (Blood Product) Amt 0 / 0 Rbc As-3 Leukoreduced Unit 0 / 0 [id number] Output: Urine 1050 / 1050 900 / 900 200 / 200 Other: # Voids 2 Date of Last Bowel Movement 05/26/18 05/27/19 # Bowel Movements 0 Narrative: GENERAL: 78-year-old well-nourished, well developed male lying in bed in no acute distress. SKIN: Warm and dry. Left periorbital abrasion noted. CARDIOVASCULAR: Regular rate and rhythm. RESPIRATORY: No accessory muscle use. Lungs clear to auscultation bilaterally. GASTROINTESTINAL: Abdomen soft, non-tender, nondistended. + BS. MUSCULOSKELETAL: Extremities without cyanosis, or edema. LLE dressing with CKS in place. MAEW, + perfused NEUROLOGICAL: Awake and alert. Normal speech. Results Procedures completed during hospitalization: 05/24: ORIF and I&D RIGHT distal femur medial condyle fracture. Primary repair of quadriceps tendon laceration Labs on day of discharge: Labs from last 24 hours 05/27/18 05/27/18 05/26/18 04:09 04:09 07:44 WBC 7.8 RBC 3.25 L Hgb 8.8 L Hct 25.9 L MCV 79.7 L MCH 27.1 MCHC 34.0 RDW 17.4 H Plt Count 196 MPV 6.9 L Neut % (Auto) 71.1 H Lymph % (Auto) 15.0 [place] % (Auto) 12.7 H Eos % (Auto) 0.6 Baso % (Auto) 0.6 Neut # (Auto) 5.6 Lymph # (Auto) 1.2 [place] # (Auto) 1.0 H Eos # (Auto) 0.0 Baso # (Auto) 0.0 WBC Differential . Differential Comment Auto diff final Sodium 136 Potassium 3.5 Chloride 101 Carbon Dioxide 30.3 Anion Gap 5 BUN 11 Creatinine 0.68 Estimated GFR Greater than 89 Random Glucose 101 Calcium 7.7 L MTS Gel Crossmatch See Detail - Impressions ITS Impressions Knee X-Ray 05/24/18 00:00 CONCLUSION: 1. Status post ORIF of right distal femur. 2. 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 Discharge Plan - Discharge Disposition Patient Disposition: Discharge to SNF - Discharge Condition Condition: Stable - Discharge Order Discharge Orders: Discharge Order (Routine); Ordered 05/27/18 Ordered By: Rekha Bell Orthopedic Clear for Discharge (Routine); Ordered 05/27/18 Ordered By: Jose Aaron - Discharge Details Anticipated Discharge Date: 05/27/18 - Physicians Team Primary Care Provider: Waqas Reno Attending Provider: Valentin Hoyt Other Providers: Faye,[employer] ; Dustin Barajas MD ; Oziel Abrams MD ; Zan Lazo MD ; [employer] [facility] ; Valentin Hoyt MD ; Ivonne Fortune ARNP ; Preet Grullon MD ; Medina Johansen MD ; Rekha Bell ARNP ; Yazmin Tobin MD ; [facility]
[2018-05-28 05:20] VITALS: TEMP 97.4; O2SAT 93
--- NOTE | 2018-05-28 06:28 | P.PNOP ---
Subjective Interval history: Resting comfortably with no new complaints. Is anticipating discharged home today Physical Exam Vital signs: Vital Signs 05/27/18 08:00 05/27/18 12:00 05/27/18 16:00 Temperature 97.4 F L 97.4 F L 97.8 F Pulse Rate 89 70 74 Respiratory Rate Blood Pressure 179/83 H 108/58 L 140/71 Pulse Oximetry 93 L 100 94 L 05/27/18 20:14 05/28/18 00:07 05/28/18 03:50 Temperature 98.6 F 98.8 F 97.4 F L Pulse Rate 75 88 77 Respiratory Rate Blood Pressure 140/63 133/60 145/73 H Pulse Oximetry 93 L 95 93 L Intake & Output 05/27/18 05/27/18 05/28/18 06:59 18:59 06:59 Intake Total 120 / 120 250 / 250 240 / 240 Output Total 900 / 900 600 / 600 1250 / 1250 Balance -780 / -780 -350 / -350 -1010 / -1010 Weight 78.4 kg 78.2 kg Intake: IV 250 / 250 NS Inj 250 ML @ 15 mls/hr IV. 250 / 250 SIG ONCE PAIGE Rx#:[id number] Oral 120 / 120 240 / 240 Output: Urine 900 / 900 600 / 600 1250 / 1250 Other: # Voids 2 2 Date of Last Bowel Movement 05/26/18 05/27/19 05/27/18 # Bowel Movements 0 1 0 Narrative: Right lower extremity: Clean dry dressings intact with knee immobilizer in place. Intact sensation distally in all toes. Negative Homans sign. Active dorsiflexion and plantarflexion of foot Results - Labs CBC & Chem 7: 05/27/18 04:09 05/27/18 04:09 - Procedures 05/24: ORIF and I&D RIGHT distal femur medial condyle fracture. Primary repair of quadriceps tendon laceration Assessment and Plan - Assessment and Plan 1) Right Medial Femoral condyle Fx s/p ORIF and wound closure - POD 4 -NWB -daily dressing changes -knee brace at all times for 2 weeks -begin PROM in 2 weeks 0-45deg -no quad sets or leg lifts -Orthopedically clear for discharge -DVT prophylaxis -f/u with [facility] or [facility] in 2 weeks [facility] Prescription Drug Monitoring Database has been queried and verified prior to prescribing the controlled substance. Acute pain exception. This patient has normal, predicted, physiological, and time limited response to an adverse mechanical stimulus associated with surgery, trauma, or acute illness as described in my notes. There is a lack of alternative treatment options other than to include the prescribed narcotic treatment for this condition.
[2018-05-28 07:30] VITALS: BP 148/82; PULSE 80; RESP 19
[2018-05-28] MEDS: Famotidine 20 MG Tablet PO SCH (10:03)
[2018-05-28] MEDS: Polyethylene Glycol 3350 17 GM Packet PO SCH (10:03)
[2018-05-28] MEDS: Senna/Docusate Sodium 8.6/50 MG Tablet PO SCH (10:03)
[2018-05-28] MEDS: Enoxaparin Inj 30 MG/0.3 ML Syringe SQ SCH (10:03)
[2018-05-28] MEDS: Carvedilol 12.5 MG Tablet PO SCH (10:04)
[2018-05-28] MEDS: amLODIPine 10 MG Tablet PO SCH (10:04)
[2018-05-28] MEDS: Calcium/Vitamin D 250/125 MG Tablet PO SCH (10:05)
== END 2018-05-28 12:11 | DRG 481 ==
LOC: NEPE 00:35 → NEDA 01:00 → NEDH 05:00 → N06 07:37
PROVIDERS: ADMIT Surgery; ATTEND Surgery
PROC: ORIFPAT (2018-05-24 08:37)
CPT/HCPCS: 36430; 73560; 76000; 80048; 82040; 83735; 85025; 86850; 86900; 86901; 86923; 92610; 93005; 94150; 97110; 97163; 97166; 97530; 97535; 99285; C1713; C1776; G0195; J0690; J1170; J1580; J1650; J2250; J2270; J2405; J3010; J7050; J7120; L1830; P9016